=== PATIENT | female | born 1995 | race Caucasian/White ===

== ENCOUNTER 2024-07-19 00:09 | Emergency (ER) | payer MEDICAID, OTHER ==
[~2024-07-19] VITALS: Ht 180.3 cm; Wt 108.9 kg
[2024-07-19 00:09] VITALS: BP 146/72; TEMP 98.2; O2SAT 99
[2024-07-19] MEDS ORDERED: CLOB15OI3 TP (01:14)
== END 2024-07-19 01:32 | disposition home or self-care (01) ==
LOC: ER 00:59
DX: R21 Rash and other nonspecific skin eruption (principal)